=== PATIENT | female | born 1970 ===

== ENCOUNTER → 2024-04-09 | Outpatient (CLI) | payer BC, SELFPAY ==
[2024-04-09 13:35] LABS: Basophils % (Auto) 0 % (0-2.5); Eosinophils # (Auto) 0.1 Thou/mm3 (0.0-0.5); Eosinophils % (Auto) 2 % (0-10); Hematocrit 38.6 % (36.0-46.0); Hemoglobin 12.8 g/dL (12.0-16.0); Immature Granulocytes % (Auto) 0 % (0-0); Immature Granulocytes Auto 0.03 Thou/mm3 (0.00-0.00); Lymphocytes # (Auto) 1.6 Thou/mm3 (1.0-4.8); Lymphocytes % (Auto) 22 % (10-50); Mean Corpuscular HGB Conc 33.2 g/dl (31.0-37.0); Mean Corpuscular Hemoglobin 26.1 pg (25.0-35.0); Mean Corpuscular Volume 79 fL (80-100); Monocytes # (Auto) 0.6 Thou/mm3 (0.0-0.8); Monocytes % (Auto) 8 % (0-12); Neutrophils # (Auto) 4.8 Thou/mm3 (1.8-7.7); Neutrophils % (Auto) 68 % (37-80); Nucleated Red Blood Cell % 0 /100 WBC (0); Platelet Count 368 Thou/mm3 (140-440); RDW Standard Deviation 42.6 fL (36.4-46.3); Red Blood Count 4.91 Miln/mm3 (4.00-5.20); White Blood Count 7.1 Thou/mm3 (3.6-11.0)
[2024-04-09 13:52] LABS: Sed Rate (ESR) 65 mm/hr (0-30)
[2024-04-09 13:53] LABS: Alanine Aminotransferase 15 U/L (10-49); Albumin, Serum 4.4 gm/dL (3.5-5.0); Albumin/Globulin Ratio 1.2 (1.2-2.2); Alkaline Phosphatase 80 U/L (46-116); Anion Gap 7 (7-16); Aspartate Amino Transferase 25 U/L (0-34); BUN/Creatinine Ratio 17 Ratio (12-20); Bilirubin,Total 0.3 mg/dL (0.3-1.2); Blood Urea Nitrogen 12 mg/dL (9-23); C-Reactive Protein 1.8 mg/dL (0.0-0.9); Calcium 9.5 mg/dL (8.3-10.6); Calcium (Corrected) 9.5 mg/dL (8.5-10.1); Carbon Dioxide 25.9 mMol/L (20.0-31.0); Chloride 103 mMol/L (98-107); Creatinine (Component) 0.7 mg/dL (0.6-1.3); Globulin 3.6 gm/dL (2.3-3.5); Glucose 86 mg/dL (74-106); Osmolality,Calculated 270 (275-295); Potassium 3.8 mMol/L (3.4-5.1); Sodium 136 mMol/L (136-145); eGFR > 60 See Note
[2024-04-09 18:47] LABS: RA Screen Negative (Negative)
[2024-04-17 06:35] LABS: ANA Screen, IFA NEGATIVE (NEGATIVE)
== END | disposition home or self-care (01) ==
LOC: COPL 12:23
PROVIDERS: PCP Internal Medicine; Referring Provider Internal Medicine; Visit Provider Internal Medicine
DX: M35.3 Polymyalgia rheumatica (principal)
CPT/HCPCS: 36415; 80053; 85025; 85652; 86038; 86140; 86430

== ENCOUNTER 2024-04-26 14:23 | Outpatient (AMB) | payer BC, SELFPAY ==
--- NOTE | 2024-04-26 14:47 | PD.RESCLINIC ---
Allergies/Meds Allergies & Medications Allergies No Known Allergies Allergy (Verified 05/08/24 09:34) Medication Reconciliation aspirin 81 mg chewable tablet 81 mg PO QDAY 04/09/24 [History Confirmed 05/08/24] lansoprazole 15 mg capsule,delayed release 15 mg PO QDAY 04/09/24 [History Confirmed 05/08/24] lisinopril 20 mg tablet 10 mg (1/2 x 20 mg) PO QDAY 1 month #15 tabs 05/08/24 [Rx] prednisone 5 mg tablet 20 mg (4 x 5 mg) PO QDAY polymyalgia rheumatica #90 tabs 05/08/24 [Rx] carvedilol 3.125 mg tablet 3.125 mg PO QDAY #30 tabs 05/21/24 [Rx] MA Intake Visit Data Collection New Patient or Established: Established Patient (seen at [facility] within 3 years) Seen by Clinical Staff ONLY (RN/MA): No Pain Present Currently: Yes Pain Location: Shoulder Pain scale:: 7 Pain Scale Used: [place]/Numerical PCP or OBGYN visit in last 3 months: Yes Do You Feel Safe at Home: Yes Authorities Contacted: N/A Smoking Status Smoking Status: Former smoker (Half pack a day for 10 to 15 years) For Televisit only Telemed Video/Phone Visit: Yes Verbal consent obtained for Telemed visit?: Yes Verbal Consent witness name: garcia Telemed Video/Phone visit w/Clinical Staff: 21-30 min Immunization / Flu Flu Vaccine in the Last 12 Months: Yes Flu Vaccine Exclusion Criteria: No Exclusion Criteria Past Medical History Social History SMOKING STATUS: Smoking status: Former smoker (Half pack a day for 10 to 15 years) Patient Portal Questionaires Social History Tobacco History Smoking Status: Former smoker (Half pack a day for 10 to 15 years) Domestic Abuse History Do You Feel Safe at Home: Yes Review of Systems Report any current symptoms Only answer those that you have currently: Past Medical History Past Medical History Have you ever been diagnosed with any of the following: History of Present Illness HPI Narrative 53 y/o F with PMHx significant for osteoarthritis, hypertension presented over telehealth appointment due to having some bilateral upper extremity, persistent soreness/weakness. Patient has been diagnosed with polymyalgia rheumatica with an elevated ESR and CRP from past visit and started on 15 mg p.o. prednisone daily. Patient states that she is been taking her medications and although she has made some improvement since starting the prednisone, she states that she still has some difficulty raising her arms, especially in the mornings. Patient denies having any trouble with combing her hair or brushing her teeth; however, she does state that even with the 15 mg prednisone she is still exhibiting some symptoms. Patient otherwise denies any concerning symptoms such as headache, change in vision, jaw pain or any other signs of claudication. Objective/Exam Narrative Physical exam: Telehealth visit General: Patient sounds pleasant and was content with the plan; denies having any other questions or concerns. Assessment & Plan Diagnosis / Problem List (1) Polymyalgia rheumatica: Status: Acute Assessment & Plan: Patient is a woman in her 50s presents with acute pain/weakness bilateral shoulders. Patient has family history of rheumatoid arthritis. No trauma. Has history of osteoarthritis. 04/17/2024: Patient has makedly improved on predinsone; explained to patient about risk of developing GCA and what symptoms to look out for (jaw claudication, unilateral deep headache and changes in vision) and need for prompt medical evaluation 04/26/2024: Patient has been taking prednisone 15 mg p.o. daily and has had improvement in her symptoms; however, she does state that she still has some difficulty raising her bilateral arms especially in the mornings. Patient denies having any difficulty with combing her hair or brushing her teeth. Patient also denies having any concerning symptoms such as jaw claudication, new unilateral deep headaches, changes or vision or any other signs of claudication. Plan: Told patient to increase her prednisone dose to 20 mg p.o. daily Patient is aware that if her symptoms do not improve by April 30, she can walk-in on May 01 for reassessment in person If the patient's symptoms improved with increased dose of prednisone; she will keep her appointment on May 08 Additional Assessment Attending note: I, Hayden Fletcher MD, attest that I was physically present for the yancey portions of the service completed via telehealth, and I reviewed and discussed the case with the resident and agree with the resident's plans of care as documented above. Patient on prednisone for just over 2 weeks. Much improvement but still having difficulty raising her arms. We will temporarily increase the dose of prednisone to 20 mg daily. Plan to titrate down at future visit. Labs reviewed again and consistent with polymyalgia rheumatica. Hayden Fletcher MD Physician Billing Established Patient Established Patient: E/M Level 2-CPT 57943 Office Procedures [facility] Level of Care Nursing/Assessment Patient Status: Established Patient Nursing Assessment/Reassessment: Medication Reconciliation and Update PMH in EMR Coordination of Care: Complex Care and Chronic Disease 1-5, Education Complex Pt/Fam and Staff clarify orders Established Patient Charge Established Patient Point Assignment: 70 Telehealth Telemed Phone/Video with patient at home & Dr,PA,MEMORIAL ADVISER: Yes
== END 2024-04-26 15:01 | disposition home or self-care (01) ==
LOC: HODAHC 14:23
PROVIDERS: Supervising Provider Internal Medicine
DX: M35.3 Polymyalgia rheumatica (principal)
CPT/HCPCS: 99212; G0463

== ENCOUNTER 2024-05-08 09:07 | Outpatient (AMB) | payer BC, SELFPAY ==
[2024-05-08 09:33] VITALS: BP 99/68; PULSE 86; RESP 17; TEMP 36.8; O2SAT 98; BMI 44.0
--- NOTE | 2024-05-08 09:33 | PD.RESCLINIC ---
Vital Signs 05/08/24 09:33 Height 1.5 m Height Method Stated Weight 99.053 kg Weight Measurement Method Standing Scale BMI 44.0 BP 99/68 Blood Pressure Source Automatic Cuff Blood Pressure Location Left Upper Arm Position Sitting Respiration 17 Pulse 86 Pulse Source Monitor Temp 98.3 F Temp Source Oral Pulse Oximetry (%) 98 Oxygen Delivery Method Room Air Allergies/Meds Allergies & Medications Allergies No Known Allergies Allergy (Verified 05/08/24 09:34) Medication Reconciliation aspirin 81 mg chewable tablet 81 mg PO QDAY 04/09/24 [History Confirmed 05/08/24] lansoprazole 15 mg capsule,delayed release 15 mg PO QDAY 04/09/24 [History Confirmed 05/08/24] lisinopril 20 mg tablet 10 mg (1/2 x 20 mg) PO QDAY 1 month #15 tabs 05/08/24 [Rx] prednisone 5 mg tablet 20 mg (4 x 5 mg) PO QDAY polymyalgia rheumatica #90 tabs 05/08/24 [Rx] carvedilol 3.125 mg tablet 3.125 mg PO QDAY #30 tabs 05/21/24 [Rx] MA Intake Visit Data Collection New Patient or Established: Established Patient (seen at [facility] within 3 years) Seen by Clinical Staff ONLY (RN/MA): No Pain Present Currently: Yes Pain Location: Shoulder (LEFT) Pain scale:: 5 Pain Scale Used: [place]/Numerical PCP or OBGYN visit in last 3 months: Yes Do You Feel Safe at Home: Yes Authorities Contacted: N/A Smoking Status Smoking Status: Former smoker (Half pack a day for 10 to 15 years) Immunization / Flu Flu Vaccine in the Last 12 Months: Yes Flu Vaccine Exclusion Criteria: Already Received Past Medical History Social History SMOKING STATUS: Smoking status: Former smoker (Half pack a day for 10 to 15 years) Patient Portal Questionaires Social History Tobacco History Smoking Status: Former smoker (Half pack a day for 10 to 15 years) Domestic Abuse History Do You Feel Safe at Home: Yes Review of Systems Report any current symptoms Only answer those that you have currently: Past Medical History Past Medical History Have you ever been diagnosed with any of the following: History of Present Illness HPI Narrative A 53-year-old female patient known case of hypertension, morbid obesity, prediabetes, recently diagnosed with polymyalgia rheumatica on steroid presented to the clinic for follow-up on her PMR symptoms. She reported that she recently increased her dose from 15 mg of prednisone to 20 mg and reported significant improvement of her pain and weakness. However, she still mentions that she still has some weakness and left shoulder pain. She mentioned that her left shoulder pain improved with Tylenol. On review of other system patient reported that she has bilateral knee pain more on the left side. She mentioned that she had a procedure was done in [facility] and they told her that she has osteoarthritis and expect her to have knee replacement if her symptoms continue to worsen. She mentions that the pain is on and off and she is not able to walk for long distance due to worsening of her pain. Patient also was found to have morbid obesity she mentioned that she tried multiple programs for weight loss however they failed. Objective/Exam General Limitations: no limitations General Appearance: alert, in no apparent distress, comfortable, cooperative, healthy appearing, well developed and well groomed ENT ENT exam: Present normal exam, normal oropharynx and mucous membranes moist Neck Neck exam: Present full ROM, trachea midline and other (Left sided neck swelling on inspection, no mass was felt. ) Chest Chest inspection: Present normal inspection and symmetric chest wall rise Resp Respiratory exam: Present normal lung sounds bilaterally Card Cardiovascular exam: Present regular rate, normal rhythm and normal heart sounds Abdominal Abdominal exam: Present soft and normal bowel sounds Extremities Extremities exam: Present normal inspection and full ROM Neuro Neurological exam: Present alert, oriented X3 and CN II-XII intact Psych Psychiatric exam: Present normal affect and normal mood Skin Skin exam: Present warm, dry, intact and normal color Assessment & Plan Diagnosis / Problem List (1) Polymyalgia rheumatica: Status: Acute Plan: - Refill prednisone 20 mg p.o. daily, encouraged the patient to increase the dose by 5 mg if her symptoms continue to worsen however she has to report to us before she does so. ? Because the patient is Gabrielyan long-term steroid we will order DEXA scan to establish baseline of her bone density. Will also order for vitamin D level. ? Encouraged the patient to take calcium and vitamin D supplements [id number] until we get the lab results for the vitamin D level ? Repeat CMP ? Will order TSH level to rule out any associated hypothyroidism that may worsen her proximal muscle weakness or decrease her response to prednisone with lower doses. (2) Prediabetes: Status: Acute Assessment & Plan: Patient reported that last year she was diagnosed to have prediabetes however she did not follow-up. Plan: ? Check A1c level (3) Neck swelling: Status: Acute Assessment & Plan: Patient has neck swelling on the left side, soft, no affect of swallowing and affect of facial symmetry, no pain with change of color. Patient reported that the swelling has been going on for almost 20 years. Plan: ? Neck ultrasound ? Follow-up at the clinic after the ultrasound results. (4) Hypertension: Status: Acute Qualifiers: Hypertension type: primary hypertension Qualified Code(s): I10 - Essential (primary) hypertension Assessment & Plan: Her blood pressure during all her visits on the soft side 99/68 today. Previous visit was 104/69. We believe that this low blood pressure may contribute to her generalized weakness. Plan: ? Decrease lisinopril dose to 10 mg p.o. daily ? Measure blood pressure daily (5) Morbid obesity: Status: Acute Assessment & Plan: Patient was found to have body mass index of 44%. The patient is being started on steroid for that reason we expect her body weight increase. Patient reported failed multiple weight loss programs. History of prediabetes History of bilateral osteoarthritis more on the left side most likely as a complication of her obesity. Plan: ? Will consider Zepbound after we rule out any tumor in her thyroid gland. ?A1c level (6) Secondary osteoarthritis of both knees: Status: Acute Assessment & Plan: Patient has morbid obesity BMI of 44%. Has history of knee procedure because of her pain, she mentioned that her orthopedic doctor told her that he would expect her condition to worsen because of her body weight. Plan: ? Will consider prescribing the patient is a pound for weight loss to help control obesity complications after we rule out any thyroid tumor. ? We recommended the patient to take Tylenol for the pain as needed [id number] no more than 4 tablets/day - Vitamin D level Orders: Orders Ambulatory Hemoglobin A1C 05/08/24 M35.3 - Polymyalgia rheumatica, R22.1 - Localized swelling, mass and lump, neck, R73.03 - Prediabetes Lipid Panel 05/08/24 I10 - Essential (primary) hypertension, R73.03 - Prediabetes BD bone densitometry 05/08/24 M35.3 - Polymyalgia rheumatica Thyroid Stimulating Hormone 12/03/24 M35.3 - Polymyalgia rheumatica, R22.1 - Localized swelling, mass and lump, neck, R73.03 - Prediabetes Vitamin D 25 Hydroxy Total 05/08/24 M35.3 - Polymyalgia rheumatica CBC 05/08/24 M35.3 - Polymyalgia rheumatica US soft tissue head and neck 05/08/24 M35.3 - Polymyalgia rheumatica Additional Assessment Attending note: I, Hayden Fletcher MD, attest that I was physically present for the yancey portions of the service and evaluated the patient with the resident and I reviewed and discussed the case with the resident and agree with the resident's findings and plans of care as documented above. Follow-up visit. Pain and weakness improved with increase of dose of prednisone to 20 mg. Note made of weight gain on steroids. Check hemoglobin A1c level. Mild swelling in the left side of the neck present for multiple years, we will check an ultrasound of the thyroid. Blood pressure on low side. Will decrease dose of lisinopril. Patient may be a candidate for use of GLP-1 for weight loss. We will continue prednisone at 20 mg daily for the time being. Hayden Fletcher MD Physician Billing Established Patient Established Patient: E/M Level 3-CPT 19664 Office Procedures [facility] Level of Care Nursing/Assessment Patient Status: Established Patient Nursing Assessment/Reassessment: Medication Reconciliation, Update PMH in EMR and Vital Signs Coordination of Care: Complex Care and Chronic Disease 1-5, Education Complex Pt/Fam and Staff clarify orders Established Patient Charge Established Patient Point Assignment: 85 Established Patient Point Charge: Level 3 (58-115)
== END 2024-05-08 10:32 | disposition home or self-care (01) ==
LOC: HODAHC 09:08
PROVIDERS: Supervising Provider Internal Medicine; Visit Provider Student in an Organized Health Care Education/Training Program
DX: M35.3 Polymyalgia rheumatica (principal); I10 Essential (primary) hypertension; E66.01 Morbid (severe) obesity due to excess calories; Z68.41 Body mass index [BMI] 40.0-44.9, adult; M17.0 Bilateral primary osteoarthritis of knee
CPT/HCPCS: 99213; G0463

== ENCOUNTER → 2024-05-10 | Outpatient (CLI) | payer BC, SELFPAY ==
[2024-05-10 09:49] LABS: Basophils % (Auto) 0 % (0-2.5); Eosinophils # (Auto) 0.1 Thou/mm3 (0.0-0.5); Eosinophils % (Auto) 1 % (0-10); Hematocrit 37.3 % (36.0-46.0); Immature Granulocytes % (Auto) 1 % (0-0); Immature Granulocytes Auto 0.05 Thou/mm3 (0.00-0.00); Lymphocytes # (Auto) 2.3 Thou/mm3 (1.0-4.8); Lymphocytes % (Auto) 27 % (10-50); Mean Corpuscular HGB Conc 32.2 g/dl (31.0-37.0); Mean Corpuscular Volume 81 fL (80-100); Monocytes # (Auto) 0.6 Thou/mm3 (0.0-0.8); Monocytes % (Auto) 7 % (0-12); Neutrophils # (Auto) 5.5 Thou/mm3 (1.8-7.7); Neutrophils % (Auto) 64 % (37-80); Nucleated Red Blood Cell % 0 /100 WBC (0); Platelet Count 379 Thou/mm3 (140-440); RDW Standard Deviation 47.9 fL (36.4-46.3); Red Blood Count 4.62 Miln/mm3 (4.00-5.20); White Blood Count 8.6 Thou/mm3 (3.6-11.0)
[2024-05-10 10:00] LABS: Glucose Estimated Average 131 mg/dL (80-131); Hemoglobin A1C 6.2 % Hgb (4.8-6.0)
[2024-05-10 10:09] LABS: Alanine Aminotransferase 18 U/L (10-49); Albumin, Serum 4.3 gm/dL (3.5-5.0); Albumin/Globulin Ratio 1.5 (1.2-2.2); Alkaline Phosphatase 66 U/L (46-116); Anion Gap 6 (7-16); Aspartate Amino Transferase 22 U/L (0-34); BUN/Creatinine Ratio 26 Ratio (12-20); Bilirubin,Total 0.4 mg/dL (0.3-1.2); Blood Urea Nitrogen 18 mg/dL (9-23); Calcium 9.3 mg/dL (8.3-10.6); Calcium (Corrected) 9.3 mg/dL (8.5-10.1); Carbon Dioxide 30.3 mMol/L (20.0-31.0); Cardiac Risk Estimate 2.3 RATIO (3.7-5.6); Chloride 103 mMol/L (98-107); Cholesterol 178 mg/dL (132-200); Creatinine (Component) 0.7 mg/dL (0.6-1.3); Globulin 2.9 gm/dL (2.3-3.5); Glucose 95 mg/dL (74-106); HDL Cholesterol 76 mg/dL (40-60); LDL Cholesterol,Calculated 90 mg/dL (0-130); Osmolality,Calculated 279 (275-295); Potassium 4.4 mMol/L (3.4-5.1); Sodium 139 mMol/L (136-145); Total Protein 7.2 gm/dL (5.7-8.2); Triglycerides 61 mg/dL (30-150); eGFR > 60 See Note
[2024-05-10 10:13] LABS: Vitamin D 25 Hydroxy Total 6.5 ng/mL (7.3-40.2)
== END | disposition home or self-care (01) ==
LOC: COPL 08:39
PROVIDERS: PCP Student in an Organized Health Care Education/Training Program; Referring Provider Student in an Organized Health Care Education/Training Program; Visit Provider Student in an Organized Health Care Education/Training Program
DX: E66.01 Morbid (severe) obesity due to excess calories (principal); M35.3 Polymyalgia rheumatica
CPT/HCPCS: 36415; 80053; 80061; 82306; 83036; 85025

== ENCOUNTER → 2024-06-01 | Outpatient (CLI) | payer BC, SELFPAY ==
--- NOTE | 2024-06-01 | XR_ITS ---
EXAMINATION: Cervical spine, 5 views Technique: Cervical spine AP, AP odontoid, lateral, bilateral obliques, 5 views Exam date and time: June 01, 2024 0811 hours INDICATIONS: Neck pain beginning 15 years ago FINDINGS: Straightening normal cervical lordosis Grade 1 anterolisthesis, 3.3 mm C4 on C5, likely related to the advanced degenerative disc disease C5-C6, C6-C7 Diffuse bilateral neural foraminal stenosis, moderate at the C5-C6 and C6-C7 levels Intact odontoid IMPRESSION: Advanced degenerative disc disease C5-C6, C6-C7 with bilateral neural foraminal stenosis
--- NOTE | 2024-06-01 | XR_ITS ---
Examination: Bilateral knees AP single view Oblique and lateral right and left knees total 4 views TECHNIQUE: Bilateral AP knees standing single view,. Oblique and lateral right and left knees total 4 views Exam date and time: June 01, 2024 0808 hours INDICATIONS: Bilateral knee pain beginning 20 years ago. FINDINGS: Moderate osteopenia Advanced narrowing medial joint spaces bilaterally Significant osteoarthritis patellofemoral joints No fracture IMPRESSION: Advanced narrowing medial joint spaces bilaterally
--- NOTE | 2024-06-01 08:00 | XR_ITS ---
Examination: Bone densitometry Date and time of exam:June 01, 2024 at 0804 hours INDICATIONS: Menopause age 50 vitamin D one week prednisone 6 weeks Technique: Lumbar spine and hip total bone mineralization values of an calculated. Peak reference and age match control results have been displayed. Findings: Lumbar spine total bone mineralization is1.009 gm/cm2. This is 0.3 standard deviations below peak reference. This is 0.8 standard deviations above age-matched controls. Hip total bone mineralization is 0.969 gm/cm2 This is 0.1 standard deviations above peak reference. This is 0.8 standard deviations above age-matched controls Impression: There is normal mineralization based on lumbar spine measurements. There is normal mineralization based on hip measurements
--- NOTE | 2024-06-01 08:45 | XR_ITS ---
Examination: Thyroid sonography complete TECHNIQUE: Multiple high resolution grayscale sonographic images thyroid lobes with color flow analysis Exam date and time: June 01, 2024 0858 hours INDICATIONS: Diagnosis polymyalgia rheumatica FINDINGS: Right thyroid 5.1 x 2.3 x 2.2 cm Upper pole cyst 4 x 3 mm, 4 x 3 mm Upper pole solid nodule 4 x 3 mm Left thyroid 3.9 x 1.6 x 2.0 cm No solid nodules IMPRESSION: Tiny right thyroid nodule
[2024-06-01 09:44] LABS: Collection Type, Urine Clean Catch
[2024-06-01 10:28] LABS: Thyroid Stimulating Hormone 0.66 uIU/mL (0.55-4.78); Uric Acid 4.1 mg/dL (3.1-7.8)
[2024-06-01 10:30] LABS: Sed Rate (ESR) 38 mm/hr (0-30)
[2024-06-01 10:31] LABS: Vitamin B12 298 pg/mL (211-911)
[2024-06-01 10:33] LABS: Bacteria,Urine Rare; Bilirubin,Urine Negative (Negative); Blood,Urine Negative (Negative); Color,Urine Lt-Yellow (Lt Yel-Yel); Glucose, Urine Negative (Negative); Ketones,Urine Negative (Negative); Leukocyte Esterase,Urine Positive (Negative); Nitrite,Urine Negative (Negative); Protein,Urine Negative (Neg - Trace); RBC,Urine 2 /hpf (0-3); Specific Gravity,Urine 1.017 (1.001-1.035); Squamous Epithelial Cell,Urine 8 /hpf (0-5); Urobilinogen,Urine Negative mg/dL (0.0-1.0); WBC,Urine 3 /hpf (0-5)
[2024-06-01 11:42] LABS: Clarity,Urine Hazy (Clear/Hazy)
== END | disposition home or self-care (01) ==
LOC: CDIM 08:48 → COPL 09:08
PROVIDERS: Internal Medicine; PCP Student in an Organized Health Care Education/Training Program; Referring Provider Student in an Organized Health Care Education/Training Program; Visit Provider Radiology Diagnostic Radiology
DX: M50.323 Other cervical disc degeneration at C6-C7 level (principal); M48.02 Spinal stenosis, cervical region; M25.862 Other specified joint disorders, left knee; M25.861 Other specified joint disorders, right knee; M35.3 Polymyalgia rheumatica; E04.1 Nontoxic single thyroid nodule; Z00.00 Encounter for general adult medical examination without abnormal findings
CPT/HCPCS: 36415; 72050; 73562; 76536; 77080; 81001; 82607; 84443; 84550; 85652

== ENCOUNTER → 2024-10-03 | Outpatient (CLI) | payer BC, SELFPAY ==
[2024-10-03 08:47] LABS: Glucose Estimated Average 131 mg/dL (80-131); Hemoglobin A1C 6.2 % Hgb (4.8-6.0)
[2024-10-03 08:50] LABS: Basophils % (Auto) 0 % (0-2.5); Eosinophils # (Auto) 0.1 Thou/mm3 (0.0-0.5); Eosinophils % (Auto) 1 % (0-10); Hemoglobin 12.5 g/dL (12.0-16.0); Immature Granulocytes % (Auto) 1 % (0-0); Immature Granulocytes Auto 0.07 Thou/mm3 (0.00-0.00); Lymphocytes # (Auto) 1.5 Thou/mm3 (1.0-4.8); Lymphocytes % (Auto) 17 % (10-50); Mean Corpuscular HGB Conc 33.8 g/dl (31.0-37.0); Mean Corpuscular Hemoglobin 27.7 pg (25.0-35.0); Mean Corpuscular Volume 82 fL (80-100); Monocytes # (Auto) 0.6 Thou/mm3 (0.0-0.8); Monocytes % (Auto) 6 % (0-12); Neutrophils % (Auto) 75 % (37-80); Nucleated Red Blood Cell % 0 /100 WBC (0); Platelet Count 320 Thou/mm3 (140-440); RDW Standard Deviation 46.5 fL (36.4-46.3); Red Blood Count 4.52 Miln/mm3 (4.00-5.20); White Blood Count 9.3 Thou/mm3 (3.6-11.0)
[2024-10-03 09:07] LABS: Alanine Aminotransferase 15 U/L (10-49); Albumin/Globulin Ratio 1.3 (1.2-2.2); Alkaline Phosphatase 55 U/L (46-116); Anion Gap 9 (7-16); Aspartate Amino Transferase 23 U/L (0-34); BUN/Creatinine Ratio 21 Ratio (12-20); Bilirubin,Total 0.5 mg/dL (0.3-1.2); Blood Urea Nitrogen 17 mg/dL (9-23); Calcium 9.1 mg/dL (8.3-10.6); Calcium (Corrected) 9.1 mg/dL (8.5-10.1); Carbon Dioxide 27.3 mMol/L (20.0-31.0); Cardiac Risk Estimate 2.4 RATIO (3.7-5.6); Chloride 104 mMol/L (98-107); Cholesterol 174 mg/dL (132-200); Creatinine (Component) 0.8 mg/dL (0.6-1.3); Globulin 3.1 gm/dL (2.3-3.5); Glucose 112 mg/dL (74-106); HDL Cholesterol 74 mg/dL (40-60); LDL Cholesterol,Calculated 90 mg/dL (0-130); Osmolality,Calculated 281 (275-295); Potassium 3.9 mMol/L (3.4-5.1); Sodium 140 mMol/L (136-145); Thyroid Stimulating Hormone 1.05 uIU/mL (0.55-4.78); Total Protein 7.1 gm/dL (5.7-8.2); Triglycerides 51 mg/dL (30-150); Uric Acid 4.8 mg/dL (3.1-7.8); eGFR > 60 See Note
[2024-10-03 09:15] LABS: Vitamin B12 339 pg/mL (211-911); Vitamin D 25 Hydroxy Total 48.6 ng/mL (7.3-40.2)
[2024-10-03 09:23] LABS: Sed Rate (ESR) 26 mm/hr (0-30)
[2024-10-03 09:31] LABS: Collection Type, Urine Clean Catch
[2024-10-03 10:08] LABS: Bilirubin,Urine Negative (Negative); Blood,Urine Negative (Negative); Clarity,Urine Clear (Clear/Hazy); Color,Urine Lt-Yellow (Lt Yel-Yel); Glucose, Urine Negative (Negative); Ketones,Urine Negative (Negative); Leukocyte Esterase,Urine Negative (Negative); Nitrite,Urine Negative (Negative); PH,Urine 6.5 (5.0-7.0); Protein,Urine Negative (Neg - Trace); RBC,Urine 1 /hpf (0-3); Specific Gravity,Urine 1.021 (1.001-1.035); Squamous Epithelial Cell,Urine 3 /hpf (0-5); Urobilinogen,Urine Negative mg/dL (0.0-1.0); WBC,Urine 2 /hpf (0-5)
== END | disposition home or self-care (01) ==
PROVIDERS: PCP Internal Medicine; Referring Provider Internal Medicine; Visit Provider Internal Medicine
DX: Z00.00 Encounter for general adult medical examination without abnormal findings (principal); I10 Essential (primary) hypertension; E78.5 Hyperlipidemia, unspecified; M35.3 Polymyalgia rheumatica
CPT/HCPCS: 36415; 80053; 80061; 81001; 82306; 82607; 83036; 84443; 84550; 85025; 85652

== ENCOUNTER → 2025-01-02 | Outpatient (CLI) | payer BC, SELFPAY ==
[2025-01-02 08:25] LABS: Basophils # (Auto) 0.0 Thou/mm3 (0.0-0.2); Basophils % (Auto) 0 % (0-2.5); Eosinophils # (Auto) 0.1 Thou/mm3 (0.0-0.5); Eosinophils % (Auto) 1 % (0-10); Hematocrit 38.0 % (36.0-46.0); Hemoglobin 12.5 g/dL (12.0-16.0); Immature Granulocytes Auto 0.01 Thou/mm3 (0.00-0.00); Lymphocytes # (Auto) 1.0 Thou/mm3 (1.0-4.8); Lymphocytes % (Auto) 23 % (10-50); Mean Corpuscular HGB Conc 32.9 g/dl (31.0-37.0); Mean Corpuscular Hemoglobin 26.4 pg (25.0-35.0); Mean Corpuscular Volume 80 fL (80-100); Monocytes # (Auto) 0.3 Thou/mm3 (0.0-0.8); Monocytes % (Auto) 6 % (0-12); Neutrophils # (Auto) 3.0 Thou/mm3 (1.8-7.7); Neutrophils % (Auto) 70 % (37-80); Nucleated Red Blood Cell # 0.00 Thou/mm3 (0.00-0.00); Nucleated Red Blood Cell % 0 /100 WBC (0); Platelet Count 307 Thou/mm3 (140-440); RDW Standard Deviation 42.7 fL (36.4-46.3); Red Blood Count 4.74 Miln/mm3 (4.00-5.20); White Blood Count 4.4 Thou/mm3 (3.6-11.0)
[2025-01-02 08:28] LABS: Collection Type, Urine Clean Catch
[2025-01-02 08:29] LABS: Glucose Estimated Average 137 mg/dL (80-131); Hemoglobin A1C 6.4 % Hgb (4.8-6.0)
[2025-01-02 08:45] LABS: Vitamin B12 337 pg/mL (211-911); Vitamin D 25 Hydroxy Total 72.1 ng/mL (7.3-40.2)
[2025-01-02 08:54] LABS: Alanine Aminotransferase 12 U/L (10-49); Albumin, Serum 4.3 gm/dL (3.5-5.0); Albumin/Globulin Ratio 1.1 (1.2-2.2); Alkaline Phosphatase 62 U/L (46-116); Anion Gap 9 (7-16); Aspartate Amino Transferase 29 U/L (0-34); BUN/Creatinine Ratio 13 Ratio (12-20); Bilirubin,Total 0.5 mg/dL (0.3-1.2); Blood Urea Nitrogen 10 mg/dL (9-23); Calcium 9.3 mg/dL (8.3-10.6); Calcium (Corrected) 9.3 mg/dL (8.5-10.1); Carbon Dioxide 24.8 mMol/L (20.0-31.0); Cardiac Risk Estimate 2.8 RATIO (3.7-5.6); Chloride 104 mMol/L (98-107); Cholesterol 150 mg/dL (132-200); Creatinine (Component) 0.8 mg/dL (0.6-1.3); Globulin 3.8 gm/dL (2.3-3.5); Glucose 101 mg/dL (74-106); HDL Cholesterol 53 mg/dL (40-60); LDL Cholesterol,Calculated 86 mg/dL (0-130); Osmolality,Calculated 274 (275-295); Potassium 4.0 mMol/L (3.4-5.1); Sodium 138 mMol/L (136-145); Thyroid Stimulating Hormone 0.90 uIU/mL (0.55-4.78); Total Protein 8.1 gm/dL (5.7-8.2); Triglycerides 56 mg/dL (30-150); Uric Acid 5.2 mg/dL (3.1-7.8); eGFR > 60 See Note
[2025-01-02 09:02] LABS: Sed Rate (ESR) 49 mm/hr (0-30)
[2025-01-02 09:46] LABS: Bacteria,Urine Rare; Bilirubin,Urine Negative (Negative); Blood,Urine Negative (Negative); Clarity,Urine Clear (Clear/Hazy); Color,Urine Yellow (Lt Yel-Yel); Glucose, Urine Negative (Negative); Ketones,Urine Negative (Negative); Leukocyte Esterase,Urine Positive (Negative); Nitrite,Urine Negative (Negative); PH,Urine 6.0 (5.0-7.0); Protein,Urine Trace (Neg - Trace); RBC,Urine 3 /hpf (0-3); Specific Gravity,Urine 1.024 (1.001-1.035); Squamous Epithelial Cell,Urine 4 /hpf (0-5); Urobilinogen,Urine Negative mg/dL (0.0-1.0); WBC,Urine 6 /hpf (0-5)
== END | disposition home or self-care (01) ==
LOC: COPL 07:43
PROVIDERS: PCP Internal Medicine; Referring Provider Internal Medicine; Visit Provider Internal Medicine
DX: Z00.00 Encounter for general adult medical examination without abnormal findings (principal); E78.5 Hyperlipidemia, unspecified; I10 Essential (primary) hypertension; M35.3 Polymyalgia rheumatica
CPT/HCPCS: 36415; 80053; 80061; 81001; 82306; 82607; 83036; 84443; 84550; 85025; 85652

== ENCOUNTER → 2025-04-04 | Outpatient (CLI) | payer BC, SELFPAY ==
--- NOTE | 2025-04-04 07:45 | XR_ITS ---
Examination: Screening digital mammography, bilateral Computer aided detection 3-D breast Tomosynthesis, bilateral Date and time of exam: April 04, 2025, 0730 hours, compared to mammograms dating to June 21, 2022h Indication: Screening Technique: Nonmagnified MLO, CC views of the breasts to been obtained, reconstructed from 3-D Tomosynthesis images. R2 computer aided detection program utilized for evaluation of suspicious masses and/or abnormal calcifications. 3-D Tomosynthesis images obtained. Findings: Scattered areas of fibroglandular density. 6 mm focal asymmetry 12 o'clock position left breast anterior depth Benign calcifications Impression: BI-RADS Category 0: Incomplete: Need additional imaging evaluation Recommend follow-up spot compression films of 6 mm focal asymmetry 12 o'clock position left breast as well as left breast sonography to complete the work-up
== END | disposition home or self-care (01) ==
PROVIDERS: PCP Internal Medicine; Referring Provider Internal Medicine; Visit Provider Internal Medicine
DX: Z12.31 Encounter for screening mammogram for malignant neoplasm of breast (principal); R92.8 Other abnormal and inconclusive findings on diagnostic imaging of breast; N64.89 Other specified disorders of breast
CPT/HCPCS: 77063; 77067

== ENCOUNTER → 2025-04-18 | Outpatient (CLI) | payer BC, SELFPAY ==
[2025-04-18 09:02] LABS: Sed Rate (ESR) 9 mm/hr (0-30)
[2025-04-18 09:20] LABS: Albumin, Serum 4.3 gm/dL (3.5-5.0); Anion Gap 6 (7-16); BUN/Creatinine Ratio 14 Ratio (12-20); Blood Urea Nitrogen 11 mg/dL (9-23); Calcium 9.1 mg/dL (8.3-10.6); Calcium (Corrected) 9.1 mg/dL (8.5-10.1); Carbon Dioxide 29.8 mMol/L (20.0-31.0); Chloride 106 mMol/L (98-107); Creatinine (Component) 0.8 mg/dL (0.6-1.3); Glucose 108 mg/dL (74-106); Osmolality,Calculated 283 (275-295); Phosphorous 5.4 mg/dL (2.4-5.1); Potassium 4.5 mMol/L (3.4-5.1); Sodium 142 mMol/L (136-145); eGFR > 60 See Note
== END | disposition home or self-care (01) ==
LOC: COPL 07:12
PROVIDERS: PCP Internal Medicine; Referring Provider Internal Medicine; Visit Provider Internal Medicine
DX: M35.3 Polymyalgia rheumatica (principal); R73.03 Prediabetes
CPT/HCPCS: 36415; 80069; 85652

== ENCOUNTER 2025-04-29 11:50 | Day surgery (SDC) | payer BC, SELFPAY ==
[2025-04-26 12:28] LABS: Basophils # (Auto) 0.0 Thou/mm3 (0.0-0.2); Basophils % (Auto) 0 % (0-2.5); Eosinophils # (Auto) 0.0 Thou/mm3 (0.0-0.5); Eosinophils % (Auto) 0 % (0-10); Hematocrit 37.7 % (36.0-46.0); Hemoglobin 12.3 g/dL (12.0-16.0); Immature Granulocytes Auto 0.05 Thou/mm3 (0.00-0.00); Lymphocytes # (Auto) 0.9 Thou/mm3 (1.0-4.8); Lymphocytes % (Auto) 10 % (10-50); Mean Corpuscular HGB Conc 32.6 g/dl (31.0-37.0); Mean Corpuscular Hemoglobin 27.5 pg (25.0-35.0); Mean Corpuscular Volume 84 fL (80-100); Monocytes # (Auto) 0.5 Thou/mm3 (0.0-0.8); Monocytes % (Auto) 5 % (0-12); Neutrophils # (Auto) 7.9 Thou/mm3 (1.8-7.7); Neutrophils % (Auto) 84 % (37-80); Nucleated Red Blood Cell # 0.00 Thou/mm3 (0.00-0.00); Nucleated Red Blood Cell % 0 /100 WBC (0); Platelet Count 316 Thou/mm3 (140-440); RDW Standard Deviation 47.0 fL (36.4-46.3); Red Blood Count 4.48 Miln/mm3 (4.00-5.20); White Blood Count 9.4 Thou/mm3 (3.6-11.0)
[2025-04-26 12:37] LABS: Alanine Aminotransferase 13 U/L (10-49); Albumin, Serum 4.5 gm/dL (3.5-5.0); Albumin/Globulin Ratio 1.6 (1.2-2.2); Alkaline Phosphatase 55 U/L (46-116); Anion Gap 10 (7-16); Aspartate Amino Transferase 26 U/L (0-34); BUN/Creatinine Ratio 15 Ratio (12-20); Bilirubin,Total 0.3 mg/dL (0.3-1.2); Blood Urea Nitrogen 12 mg/dL (9-23); Calcium 9.1 mg/dL (8.3-10.6); Calcium (Corrected) 9.1 mg/dL (8.5-10.1); Carbon Dioxide 26.2 mMol/L (20.0-31.0); Chloride 107 mMol/L (98-107); Creatinine (Component) 0.8 mg/dL (0.6-1.3); Globulin 2.8 gm/dL (2.3-3.5); Glucose 123 mg/dL (74-106); Osmolality,Calculated 285 (275-295); Potassium 4.3 mMol/L (3.4-5.1); Sodium 143 mMol/L (136-145); Total Protein 7.3 gm/dL (5.7-8.2); eGFR > 60 See Note
[2025-04-26 12:43] LABS: INR 1.0 (0.9-1.3); Partial Thromboplastin Time 27.1 Seconds (22.0-36.0); Prothrombin Time 10.5 Seconds (9.0-12.2)
[2025-04-26 15:17] VITALS: BMI 43.2
[2025-04-29 12:26] VITALS: BP 123/85; PULSE 91; RESP 10; TEMP 36.9; O2SAT 98
[2025-04-29 12:30] VITALS: TEMP 36.9; BMI 42.4
[2025-04-29] MEDS: LIDOCAINE JELLY 2% (Urojet) 10 ML TUBE TOP (13:14)
[2025-04-29] MEDS: RINGERS LACTATED 500 ML 500 ML 20 ML IV (13:23)
[2025-04-29 13:35] VITALS: BP 99/62; PULSE 90; RESP 17; TEMP 36.4; O2SAT 96
[2025-04-29 13:45] VITALS: BP 101/55; PULSE 86; RESP 16; O2SAT 96
[2025-04-29 13:55] VITALS: BP 106/72; PULSE 90; RESP 17; O2SAT 98
[2025-04-29 14:05] VITALS: BP 107/71; PULSE 86; RESP 17; O2SAT 98
== END 2025-04-29 14:25 | disposition home or self-care (01) ==
PROVIDERS: Anesthesiology; PCP Internal Medicine; Referring Provider Surgery; Visit Provider Surgery
PROC: 0DBE8ZX Excision of Large Intestine, Via Natural or Artificial Opening Endoscopic, Diagnostic (ICD-10-PCS; CPT 45380; principal; 2025-04-29 13:00)
DX: Z12.11 Encounter for screening for malignant neoplasm of colon (principal); M35.3 Polymyalgia rheumatica; E11.9 Type 2 diabetes mellitus without complications; I10 Essential (primary) hypertension; M79.7 Fibromyalgia; K21.9 Gastro-esophageal reflux disease without esophagitis; Z79.84 Long term (current) use of oral hypoglycemic drugs; Z79.899 Other long term (current) drug therapy
CPT/HCPCS: 45378; 36415; 80053; 85025; 85610; 85730; A4217; A4649; J7120